=== PATIENT | female | born 1990 | race Caucasian/White ===

== ENCOUNTER 2017-01-21 09:33 | Emergency (ER) | payer SELFPAY ==
[~2017-01-21] VITALS: Ht 152.4 cm; Wt 50.0 kg
[~2017-01-21 09:33] MED LIST: CIPR500T4 PO
[2017-01-21 09:35] VITALS: BP 128/74; PULSE 97; RESP 15; TEMP 97.9; O2SAT 98
--- NOTE | 2017-01-21 10:04 | PD ---
HPI . dental pain for over 1 year Chief Complaint: Oral / Dental Pain or Problem Time Seen by Provider: 10:04 Travel History International Travel<30 days: No Contact w/Intl Traveler<30days: No Traveled to known affect area: No History of Present Illness HPI 26-year-old female here with complaints of ankle pain for a year. Patient has a cavity in her number for bicuspid and has been unable to afford repair. She tells me she has gone to the dentist and they will not do anything for her. Today she is telling me that she has an abscess and she needs it checked. She is tearful. She admits to pain in the tooth radiating up to her head. 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/15) MRSA 02/2014 Reported Meds & Prescriptions Reported Meds & Active Scripts Active No Active Prescriptions or Reported Medications Review of Systems General / Constitutional: No: Fever Eyes: No: Visual changes HENT: Positive: Dental Difficulties, No: Headaches Cardiovascular: No: Chest Pain or Discomfort Respiratory: No: Shortness of Breath Gastrointestinal: No: Abdominal Pain Genitourinary: No: Dysuria Musculoskeletal: No: Pain Skin: No Rash Neurologic: No: Weakness Psychiatric: No: Depression Endocrine: No: Polydipsia Hematologic/Lymphatic: No: Easy Bruising Physical Exam Narrative GENERAL: AAO x 3, no acute distress, Well-nourished, well-developed patient. SKIN: Warm and dry. No visible rashes or bruising. HEAD: Normocephalic and atraumatic. EYES: No scleral icterus. No injection or drainage. EOM intact, PERRLA ENT: No nasal drainage noted. Mucous membranes pink. Airway patent. Full inspection of oral cavity and there is no apparent abscess. No fluid collection erythema or edema. Patient's gums are clean without any evidence of gingivitis. Cavity is not visualized. NECK: Supple, trachea midline. No JVD. No lymphadenopathy. CARDIOVASCULAR: Regular rate and rhythm without murmurs, gallops, or rubs. RESPIRATORY: Breath sounds equal bilaterally. No accessory muscle use. No rhonchi or rales. GASTROINTESTINAL: normal appearance. Nondistended. EXTREMITIES: No cyanosis or edema. BACK: Nontender without obvious deformity. No CVA tenderness. PSYCH: AAO x 3, normal affect. Data Data Last Documented VS Vital Signs Date Time Temp Pulse Resp B/P Pulse Ox O2 Delivery O2 Flow Rate FiO2 01/21/17 09:35 97.9 97 15 128/74 98 MDM Medical Decision Making Medical Screen Exam Complete: Yes Emergency Medical Condition: Yes Medical Record Reviewed: Yes Differential Diagnosis Cavity, less likely oral abscess, less likely gingivitis Narrative Course 26-year-old female here with complaints of ankle pain for a year. Patient has a cavity in her number for bicuspid and has been unable to afford repair. She tells me she has gone to the dentist and they will not do anything for her. Today she is telling me that she has an abscess and she needs it checked. She is tearful. She admits to pain in the tooth radiating up to her head. Patient seen and examined. She does not have any acute abnormalities on exam. I do not visualize any type of abscess or cellulitis in her mouth. A medical screening exam was performed: At the time of evaluation the presenting medical condition was determined not to be of an emergent nature. The patient was given the option of receiving additional care, but declined. Patient was given options for additional community resources from which to obtain care. The Patient Has Been advised to seek medical attention for their presenting complaint. The patient has been advised to return to the ER at any time if an emergent condition develops. Diagnosis Primary Impression: Encounter for medical screening examination Scripts No Active Prescriptions or Reported Meds Condition: Claudia Carrion Jan 21, 2017 10:04
== END 2017-01-21 10:32 | disposition left against medical advice (07) ==
LOC: NEPB 09:33
DX: K08.89 Other specified disorders of teeth and supporting structures (principal)
CPT/HCPCS: 99281

== ENCOUNTER 2017-10-07 22:23 | Emergency (ER) | payer SELFPAY ==
[2017-10-07 22:25] VITALS: BP 128/95; PULSE 93; RESP 18; TEMP 99; O2SAT 100
[2017-10-07] MEDS ORDERED: SODIUM CHLORIDE 0.9% FLUSH 10 ML FLUSH IV FLUSH PRN (22:45)
[2017-10-07] MEDS ORDERED: KETOROLAC TROMETHAMINE 30 MG/ML (IVP) VIAL IV PUSH ONE (22:45)
[2017-10-07] MEDS ORDERED: SODIUM CHLOR 0.9% 1000 ML INJ 1,000 ML IV SCH (22:45)
--- NOTE | 2017-10-07 22:51 | PD ---
HPI Chief Complaint: Pain: Acute or Chronic Time Seen by Provider: 22:42 Travel History International Travel<30 days: No Contact w/Intl Traveler<30days: No Traveled to known affect area: No History of Present Illness HPI 27-year-old female who states was diagnosed with lupus by primary care physician about a month ago, here for evaluation of possible lupus flare. Patient reports several episodes of similar symptoms throughout the last month. She is complaining mainly of right flank and right hip pain that radiates around to right abdomen, and increased urinary frequency. Pain is moderate to severe, constant, dull/ache. No trauma. No fevers or chills. No nausea or vomiting. PFSH Past Medical History Bipolar Disorder: Yes Anxiety: Yes Depression: Yes Diminished Hearing: No ?: Not Past Surgical History Tonsillectomy: Yes Social History Alcohol Use: No Tobacco Use: No Substance Use: No Allergies-Medications (Allergen,Severity, Reaction): Coded Allergies: *MDRO Multi-Drug Resistant Organism (Verified Allergy, Unknown, 12/06/15) MRSA 02/2014 Reported Meds & Prescriptions Reported Meds & Active Scripts Active No Active Prescriptions or Reported Medications Review of Systems Except as stated in HPI: all other systems reviewed are Neg Physical Exam Narrative GENERAL: Well-developed, well-nourished, sitting comfortably on chair, no apparent distress. SKIN: Focused skin assessment warm/dry. No rash. HEAD: Atraumatic. Normocephalic. EYES: Pupils equal and round. No scleral icterus. No injection or drainage. ENT: Mucous membranes pink and moist. NECK: Trachea midline. No JVD. CARDIOVASCULAR: Regular rate and rhythm. RESPIRATORY: No accessory muscle use. Clear to auscultation. Breath sounds equal bilaterally. GASTROINTESTINAL: Abdomen soft, non-tender, nondistended. MUSCULOSKELETAL: No obvious deformities. No clubbing. No cyanosis. No edema. Mild right CVA tenderness. No left CVA tenderness. No midline vertebral step- off or tenderness. NEUROLOGICAL: Awake and alert. No obvious cranial nerve deficits. Motor grossly within normal limits. Normal speech. PSYCHIATRIC: Appropriate mood and affect; insight and judgment normal. Data Data Last Documented VS Vital Signs Date Time Temp Pulse Resp B/P (MAP) Pulse Ox O2 Delivery O2 Flow Rate FiO2 10/07/17 22:55 16 98 Room Air 10/07/17 22:25 99.0 93 Orders Orders Complete Blood Count With Diff (10/07/17 22:45) Comprehensive Metabolic Panel (10/07/17 22:45) Urinalysis - C+S If Indicated (10/07/17 22:45) Ct Abd/Pel W Iv Contrast(Rout) (10/07/17 22:45) Iv Access Insert/Monitor (10/07/17 22:45) Ecg Monitoring (10/07/17 22:45) Oximetry (10/07/17 22:45) Sodium Chlor 0.9% 1000 Ml Inj (Ns 1000 M (10/07/17 22:45) Sodium Chloride 0.9% Flush (Ns Flush) (10/07/17 22:45) Ed Urine Pregnancytest Poc (10/07/17 22:45) Ketorolac Inj (Toradol Inj) (10/07/17 22:45) Iohexol 350 Inj (Omnipaque 350 Inj) (10/08/17 01:05) Labs Laboratory Tests Test 10/07/17 23:19 White Blood Count 7.7 TH/MM3 Red Blood Count 4.19 MIL/MM3 Hemoglobin 12.9 GM/DL Hematocrit 38.0 % Mean Corpuscular Volume 90.6 FL Mean Corpuscular Hemoglobin 30.9 PG Mean Corpuscular Hemoglobin Concent 34.1 % Red Cell Distribution Width 13.2 % Platelet Count 185 TH/MM3 Mean Platelet Volume 9.9 FL Neutrophils (%) (Auto) 52.4 % Lymphocytes (%) (Auto) 35.9 % Monocytes (%) (Auto) 9.3 % Eosinophils (%) (Auto) 1.2 % Basophils (%) (Auto) 1.2 % Neutrophils # (Auto) 4.0 TH/MM3 Lymphocytes # (Auto) 2.7 TH/MM3 Monocytes # (Auto) 0.7 TH/MM3 Eosinophils # (Auto) 0.1 TH/MM3 Basophils # (Auto) 0.1 TH/MM3 CBC Comment DIFF FINAL Differential Comment Urine Color LIGHT-YELLOW Urine Turbidity CLEAR Urine pH 6.0 Urine Specific [place] 1.007 Urine Protein NEG mg/dL Urine Glucose (UA) NEG mg/dL Urine Ketones NEG mg/dL Urine Occult Blood NEG Urine Nitrite NEG Urine Bilirubin NEG Urine Urobilinogen LESS THAN 2.0 MG/DL Urine Leukocyte Esterase NEG Urine RBC LESS THAN 1 /hpf Urine WBC 1 /hpf Urine Squamous Epithelial Cells 2 /hpf Microscopic Urinalysis Comment CULT NOT INDICATED Blood Urea Nitrogen 14 MG/DL Creatinine 0.82 MG/DL Random Glucose 87 MG/DL Total Protein 7.6 GM/DL Albumin 4.5 GM/DL Calcium Level 8.7 MG/DL Alkaline Phosphatase 57 U/L Aspartate Amino Transf (AST/SGOT) 16 U/L Alanine Aminotransferase (ALT/SGPT) 24 U/L Total Bilirubin 0.3 MG/DL Sodium Level 138 MEQ/L Potassium Level 3.5 MEQ/L Chloride Level 109 MEQ/L Carbon Dioxide Level 20.6 MEQ/L Anion Gap 8 MEQ/L Estimat Glomerular Filtration Rate 85 ML/MIN [facility] Medical Decision Making Medical Screen Exam Complete: Yes Emergency Medical Condition: Yes Differential Diagnosis Lupus flare, lupus nephritis, pyonephritis, nephrolithiasis, ureterolithiasis, colitis Narrative Course Vital signs show heart rate 93, blood pressure 128/95, pulse ox 100% on room air , oral temp of 99F. CBC is unremarkable. CMP is unremarkable. UA is not suggestive of UTI. CT abdomen pelvis: CONCLUSION: No abnormality is identified within the abdomen or pelvis to explain the clinical symptoms. Patient was given a dose of IV Toradol and on reassessment she is resting comfortably. She was made aware of all findings. At this point I believe she is stable for discharge home with further workup as an outpatient with her primary care physician this week. She was informed on when to return to the emergency department. She verbalizes understanding and agreement with plan. Diagnosis Primary Impression: Right flank pain Additional Impression: Arthralgia Qualified Codes: M25.50 - Pain in unspecified joint Referrals: Primary Care Physician 3 days Additional Instructions: Follow-up with your primary care physician this week. Take ibuprofen for pain. Return to the emergency department for worsening symptoms or any other concerns. Scripts No Active Prescriptions or Reported Meds Disposition: 01 DISCHARGE HOME Condition: Stable Kaz Lowery MD Oct 07, 2017 22:51
[2017-10-07 22:55] VITALS: RESP 16; O2SAT 98
[2017-10-07 23:33] LABS: BASOPHIL # 0.1 TH/MM3 (0-0.2); BASOPHIL % 1.2 % (0.0-2.0); EOSINOPHIL # 0.1 TH/MM3 (0-0.4); EOSINOPHIL % 1.2 % (0.0-4.0); HEMO FLAGS DIFF FINAL; LYMPH % 35.9 % (9.0-44.0); LYMPHOCYTE # 2.7 TH/MM3 (1.0-4.8); MEAN CELL VOLUME 90.6 FL (80.0-100.0); MEAN CORPUSCULAR HEMOGLOBIN 30.9 PG (27.0-34.0); MEAN CORPUSCULAR HGB CONC 34.1 % (32.0-36.0); MONO % 9.3 % (0.0-8.0); NEUT % 52.4 % (16.0-70.0); PLATELET COUNT 185 TH/MM3 (150-450); RED BLOOD COUNT 4.19 MIL/MM3 (4.00-5.30); RED CELL DISTRIBUTION WIDTH 13.2 % (11.6-17.2); WHITE BLOOD COUNT 7.7 TH/MM3 (4.0-11.0)
[2017-10-07 23:44] LABS: BLOOD, URINE NEG (NEG); GLUCOSE,URINE NEG (NEG); KETONE, URINE NEG (NEG); NITRITE,URINE NEG (NEG); SQUAMOUS EPITHELIAL CELL URINE 2 /hpf (0-5); URINE COLOR LIGHT-YELLOW (YELLW/STRAW)
[2017-10-08 00:04] LABS: ALT (GPT) 24 U/L (10-53); ANION GAP 8 MEQ/L (5-15); AST (GOT) 16 U/L (15-37); BICARBONATE 20.6 MEQ/L (21.0-32.0); BLOOD UREA NITROGEN 14 MG/DL (7-18); CHLORIDE 109 MEQ/L (98-107); GLOMERULAR FILTRATION RATE 85 ML/MIN (>89); POTASSIUM 3.5 MEQ/L (3.5-5.1); SODIUM (NA) 138 MEQ/L (136-145)
[2017-10-08 00:07] LABS: ALKALINE PHOSPHATASE 57 U/L (45-117); TOTAL BILIRUBIN ADULT 0.3 MG/DL (0.2-1.0)
[2017-10-08 00:13] LABS: COMMENT (UR) CULT NOT INDICATED; CULTURE IF INDICATED CULT NOT INDICATED
[2017-10-08] MEDS ORDERED: IOHEXOL 350 MG/ML 10 ML VIAL (for RAD DIAG) IVCONTRAST ONE (01:05)
--- NOTE | 2017-10-08 01:21 | RADRPT ---
EXAM DATE/TIME: 10/08/2017 01:03 [facility] COMPARISON: No previous studies available for comparison. INDICATIONS : Diffuse abdominal pain. IV CONTRAST: 75 cc Omnipaque 350 (iohexol) IV ORAL CONTRAST: No oral contrast ingested. RADIATION DOSE: 4.51 CTDIvol (mGy) MEDICAL HISTORY : Lupus. SURGICAL HISTORY : None. ENCOUNTER: Initial ACUITY: 1 day PAIN SCALE: 6/10 LOCATION: Bilateral abdomen TECHNIQUE: Volumetric scanning of the abdomen and pelvis was performed. Using automated exposure control and ad justment of the mA and/or kV according to patient size, radiation dose was kept as low as reasonably achievable to obtain optimal diagnostic quality images. DICOM format image data is available electro nically for review and comparison. FINDINGS: LOWER LUNGS: The visualized lower lungs are clear. LIVER: Homogeneous density without lesion. There is no dilation of the biliary tree. No calcified gallston es. SPLEEN: Normal size without lesion. PANCREAS: Within normal limits. KIDNEYS: Normal in size and shape. There is no mass, stone or hydronephrosis. ADRENAL GLANDS: Within normal limits. VASCULAR: There is no aortic aneurysm. BOWEL/MESENTERY: The stomach, small bowel, and colon demonstrate no acute abnormality. There is no free intraperitone al air or fluid. Appendix is normal. ABDOMINAL WALL: Within normal limits. RETROPERITONEUM: There is no lymphadenopathy. BLADDER: No wall thickening or mass. REPRODUCTIVE: Within normal limits. INGUINAL: There is no lymphadenopathy or hernia. MUSCULOSKELETAL: Within normal limits for patient age. CONCLUSION: No abnormality is identified within the abdomen or pelvis to explain the clinical symptoms. Sd Mckenzie MD on October 08, 2017 at 1:16 Board Certified Radiologist. This report was verified electronically.
== END 2017-10-08 01:58 | disposition home or self-care (01) ==
LOC: NEPE 22:23
DX: R10.9 Unspecified abdominal pain (principal); M25.50 Pain in unspecified joint; M32.9 Systemic lupus erythematosus, unspecified
CPT/HCPCS: 74177; 80053; 81001; 84703; 85025; 96374; 99285; J1885; J7030; Q9967